=== PATIENT | male | born 1970 | race Caucasian/White ===

== ENCOUNTER 2025-01-26 06:27 | Day surgery (SDC) | payer OTHER, SELFPAY ==
[2025-01-26 12:03] VITALS: BMI 37.0
[2025-01-26 12:05] VITALS: BMI 37.0
[2025-01-26 12:06] VITALS: BP 130/86
[2025-01-26 13:56] VITALS: BP 130/86
[2025-01-26 14:00] VITALS: BP 132/90
[2025-01-26 14:15] VITALS: BP 133/89
== END 2025-01-26 14:30 | disposition home or self-care (01) ==
LOC: GI 06:27
PROVIDERS: ATTENDING PHYSICIAN Internal Medicine Gastroenterology
DX: K29.60 Other gastritis without bleeding (principal); K31.89 Other diseases of stomach and duodenum; K86.9 Disease of pancreas, unspecified; R93.2 Abnormal findings on diagnostic imaging of liver and biliary tract
CPT/HCPCS: 43251; 43239; 43259; 88305